=== PATIENT | male | born 1965 | race Asian ===

== ENCOUNTER 2019-02-04 13:13 | Outpatient (CLI) | payer OTHER | END 2019-02-04 21:15 | disposition home or self-care (01) | LOC: SUS 13:13 | PROVIDERS: ATTEND Obstetrics & Gynecology | DX: N28.1 Cyst of kidney, acquired (principal) | CPT/HCPCS: 76770 ==

== ENCOUNTER 2019-02-23 12:34 | Outpatient (CLI) | payer OTHER | END 2019-02-23 20:23 | disposition home or self-care (01) | LOC: SMI 12:34 | PROVIDERS: ATTEND Obstetrics & Gynecology | DX: M79.605 Pain in left leg (principal); N28.1 Cyst of kidney, acquired | CPT/HCPCS: 73720 ==